=== PATIENT | male | born 1975 | race Caucasian/White ===

== ENCOUNTER → 2022-08-18 08:56 | Outpatient (BNVA) | payer BC, SELFPAY | PROVIDERS: Family Provider Nurse Practitioner Family; PCP Family Medicine; Visit Provider Registered Nurse | DX: Z00.00 Encounter for general adult medical examination without abnormal findings (principal); Z12.11 Encounter for screening for malignant neoplasm of colon; L40.9 Psoriasis, unspecified | CPT/HCPCS: 80053; 80061; 85025 ==

== ENCOUNTER 2023-01-15 06:54 | Day surgery (SDC) | payer BC, SELFPAY ==
[2023-01-13 10:24] VITALS: BMI 31.4
[2023-01-15 07:10] VITALS: BP 125/83; PULSE 104; RESP 18; TEMP 36.1; O2SAT 96
[2023-01-15] MEDS: sodium chloride 0.9% 1,000 ML 30 ML IV (07:15)
--- NOTE | 2023-01-15 07:33 | P.ANESASSM_ITS ---
Pre-Anesthetic Assessment Height/Weight: Height 1.8 m Weight 102.058 kg Temp Pulse Resp BP Pulse Ox O2 Del Method 97.0 F L 104 H 18 125/83 96 01/15/23 07:10 01/15/23 07:10 01/15/23 07:10 01/15/23 07:10 01/15/23 07:10 01/15/23 07:10 Preop Diagnosis: Screening Operation Date: 01/15/23 08:30 Proposed Procedures p Colonoscopy 75710,Z12.11(Not Applicable) - Julian Sheldon DO Familial anesthetic complications: None Was Beta Jackie taken within 24 hours: N/A Was Clonidine taken within 24 hours: N/A Last intake: Intake Last Liquid Date 01/14/23 Last Liquid Time 22:00 Last Solid Date 01/13/23 Last Solid Time 18:00 Social Tobacco (Nicotine vape, quit smoking 2 years ago smoked 1-1.5 ppd x 29 years) and No alcohol Exam alert, oriented x 3, clear to auscultation bilaterally and regular rate & rhythm Airway Submandibular: within normal limits Cervical ROM: within normal limits Mallampati: Class III Dentition: chipped and full History/ROS No significant history except as noted and No significant complaints Pulmonary 2 weeks ago had allergy like symptoms CV/HEM Coronary Artery Disease None reported Hepatic None reported GI None reported Metabolic None reported Musc/skel Lower Back Pain, Osteoarthritis/DJD and Scoliosis Car eck 1999 Neuropsych Seizure (Childhood, none since and no issues) Anesthetic Plan ASA status: 2 Anesthesia: Anesthesia Evaluation, General and MAC Risk of > 500 ml blood loss (7ml/kg in children): No Medications/Allergies Home Medications Medication Instructions Recorded Confirmed Last Taken Type naproxen sodium 220 mg tablet 220 mg PO BID PRN Pain 01/13/23 01/13/23 01/12/23 History (Aleve) Allergies Allergy/AdvReac Type Severity Reaction Status Date / Time No Known Allergies Allergy Verified 01/15/23 07:03 Current Medications Generic Name Dose Route Start Last Admin Trade Name Freq PRN Reason Stop Dose Admin Sodium Chloride 1,000 mls @ 30 mls/hr 01/15/23 07:00 01/15/23 07:15 Sodium Chloride 0.9% IV 01/16/23 06:59 30 mls/hr .Q24H TRAVIS Administration PFSH Anesthesia Family History Father Heart disease Hypertension Other Cancer Social History Smoking and tobacco status: current every day smoker (VAPE) e-cigarettes E- Cigarette Details: vaporizer device Alcohol intake: never Adopted: No Caregiver/support person: No Lives independently: No Household members: spouse Marital status: service: Yes branch: [employer] Assignments: Inside [facility] ([facility]) Known or Potential Exposure: None Current occupational status: employed Sexually active: Yes Current gender identity: Male Data Anesthesia Cardiac Studies: No Data to Display
--- NOTE | 2023-01-15 08:20 | P.HP_ITS ---
Providers/Chief Complaint Primary Care Provider: Jean-Claude Castaneda Chief Complaint: Encounter for screening History of Present Illness Jay Jay Benitez is a 47 year old male who is here for his first screening colonoscopy. He denies any abdominal pain or symptoms with his bowels. He does report that his grandfather got colon cancer at about his age. Review of Systems General: Reports: 10 or more systems reviewed and unremarkable except in HPI and below Medications/Allergies Home Medications Medication Instructions Recorded Confirmed Last Taken Type naproxen sodium 220 mg tablet 220 mg PO BID PRN Pain 01/13/23 01/13/23 01/12/23 History (Aleve) Allergies Allergy/AdvReac Type Severity Reaction Status Date / Time No Known Allergies Allergy Verified 01/15/23 07:03 PFSH Acute PFSH: Family History Father Heart disease Hypertension Other Cancer Social History Smoking and tobacco status: current every day smoker (VAPE) e-cigarettes E- Cigarette Details: vaporizer device Alcohol intake: never Adopted: No Caregiver/support person: No Lives independently: No Household members: spouse Marital status: service: Yes branch: [employer] Assignments: Inside [facility] ([facility]) Known or Potential Exposure: None Current occupational status: employed Sexually active: Yes Current gender identity: Male Vitals/I&O/Wt Last Vital Signs Temp 97.0 F L 01/15/23 07:10 Pulse 104 H 01/15/23 07:10 Resp 18 01/15/23 07:10 BP 125/83 01/15/23 07:10 Pulse Ox 96 01/15/23 07:10 O2 Del Method 01/15/23 07:10 Weight last 48 hrs Weight 225 lb Physical Exam Narrative: General : Patient is well developed , no acute distress, oriented x3 Head : Normal cephalic, a-traumatic. Ears : Pinnae and external canal are normal. Hearing is normal. Eyes : PERRLA, Sclera and injection are normal. No conjunctival discharge. Nose : Mucous membranes are without erythema. Throat : buccal mucosa is normal, gums are without significant recession or hypertrophy. Lungs : Equal chest rise bilaterally, no use of accessory muscles, trachea is midline. Cor : Rate and rhythm are normal. Abdomen : Soft, ND, NT, no g/r/m Extremities : No edema, no cyanosis or clubbing, dorsalis pedis pulses are present bilaterally, non-tender to palpation of calves. Upper extremities are normal bilaterally. Back : non-tender to palpation, no CVA tenderness. Neuro : CN II - XII intact, Upper and lower extremities have equal and full strength A&P Assessment and plan (1) Colon cancer screening: Plan Colonoscopy The risks and benefits of the procedure, including bleeding, infection, intestinal perforation requiring surgery, missed lesion were explained to the patient. The patient is understanding of the risks and wishes to proceed. Attestations Medical Necessity Statement*: Home Coding Level of Care Code Acute Code for Chg Fwd Diagnoses Colon cancer screening Z12.11
[2023-01-15 08:45] VITALS: BP 114/88; PULSE 90; RESP 16; TEMP 36.2; O2SAT 94
[2023-01-15 08:54] VITALS: BP 104/77; PULSE 90; RESP 16; O2SAT 97
--- NOTE | 2023-01-15 13:28 | ANE.PACU2 ---
Inpatient post-anesthesia follow up: Airway intact: Yes Vital signs: Temperature 97.1 F Pulse Rate 90 Respiratory Rate 16 Blood Pressure 104/77 Pulse Oximetry 97 Oxygen Delivery Me thod Room Air Oxygen Flow Rate Fraction of Inspir ed Oxygen Hydration adequate: Yes Nausea and vomiting: No Pain level: 2 Mental status: Baseline
== END 2023-01-15 09:10 | disposition home or self-care (01) ==
PROVIDERS: PCP Nurse Practitioner Family; Visit Provider Surgery
PROC: 0DJD8ZZ Inspection of Lower Intestinal Tract, Via Natural or Artificial Opening Endoscopic (ICD-10-PCS; CPT 45378; principal; 2023-01-15 08:30)
DX: Z12.11 Encounter for screening for malignant neoplasm of colon (principal); K63.5 Polyp of colon; F17.290 Nicotine dependence, other tobacco product, uncomplicated
CPT/HCPCS: 45385; 88305; J2704; J7030